=== PATIENT | male | born 1930 | race Caucasian/White ===

== ENCOUNTER 2020-01-26 06:52 | Day surgery (SDC) | payer MEDICARE, OTHER ==
[~2020-01-26] VITALS: Ht 182.9 cm; Wt 69.4 kg
--- NOTE | ~2020-01-26 | OP ---
PATIENT NAME: AGUSTIN IRIZARRY MEDICAL RECORD: [id number] :[birth year] LOCATION:D.OPS ADMISSION DATE: SURGEON: ABDI ADRIAN MD DATE OF OPERATION: 01/26/2020 PREOPERATIVE DIAGNOSIS: Rectal adenocarcinoma. POSTOPERATIVE DIAGNOSIS: Rectal adenocarcinoma. PROCEDURE: Rigid proctoscopy. SURGEON: Abdi Adrian MD REPORT OF PROCEDURE: The patient was placed in lithotomy position. A rigid proctoscope was advanced through the anus and I was able to advance the scope up to 25 cm. As we pulled the scope back, there was some stool that was present. We were able to suction this out and get a good clear view of the patient's rectal tissue. As I pulled back all the way to the anal verge, I never saw any evidence of a rectal mass or ulceration present. The rectal tissue appeared to be normal with no signs of any scarring. I inspected this area a couple of different times, just to make sure I did not miss anything and I never saw any evidence of a tumor. At this point, the scope was removed. COMPLICATIONS: None. CONDITION: Stable. ANESTHESIA: General endotracheal. 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
[~2020-01-26 06:52] MED LIST: INDERAL 40 MG T40 MG PO; LOMOTIL 2.5-0.1 EAC1 PO; ROPINIROLE HCL1 MG PO; TOPROL XL25 MG PO; XALATAN 0.0052.5 ML EACH EYE
[2020-01-26 07:22] LABS: BASOPHILS 1.5 % (0-2); EOSINOPHILS 6.4 % (0-7); HEMATOCRIT 38.3 % (42.0-54.0); HEMOGLOBIN 12.6 g/dL (13.5-17.5); IMMATURE GRANULOCYTES 0.2 % (0-5); LYMPHOCYTES 10.6 % (15-50); MCH 34.4 pg (26.0-34.0); MCHC 32.9 g/dL (31.0-37.0); MCV 104.6 fL (80.0-100.0); MEAN PLATELET VOLUME 9.4 fL (7.4-10.4); MONOCYTES 9.6 % (2-11); NEUTROPHILS 71.7 % (40-80); PLATELET COUNT 112 10x3/uL (130-400); RBC 3.66 10x6/uL (4.20-6.10); RDW 18.7 % (11.5-14.5); WBC 4.1 10x3/uL (4.8-10.8)
[2020-01-26 07:26] LABS: INR 1.12 (0.85-1.17); PROTIME 14.4 SECONDS (11.6-15.0)
[2020-01-26 07:27] LABS: APTT 30.2 SECONDS (22.8-39.4)
[2020-01-26 07:47] LABS: CALC OSMOLALITY 280 mosm/kg (275-300); CALCIUM 9.1 mg/dL (8.5-10.1); CARBON DIOXIDE 29.4 mmol/L (21.0-32.0); CHLORIDE - SERUM 105 mmol/L (98-107); GLUCOSE 112 mg/dL (74-106); SODIUM 140 mmol/L (136-145); UREA NITROGEN 14 mg/dL (7-18); eGFR NON AFRICAN AMERICAN 75 mL/min (90-120)
[2020-01-26 08:31] VITALS: BP 130/87; Ht 182.9 cm; Wt 69.4 kg
--- NOTE | 2020-01-26 11:55 | NUR ---
1130-TOLERATED COFFEE WITH CREAM AND SUGAR AND GLASS OF ICE WATER. VERY PLEASANT. DENIES PAIN.VSS.
--- NOTE | 2020-01-26 12:03 | NUR ---
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 REMOVED IV WITH CATH INTACT,DISPOSED INTO SHARPS,COVERED WITH GUAZE,SECURED WITH MEDIPORE TAPE. VERY PLEASANT WITHOUT COMPLAINTS. VSS.
--- NOTE | 2020-01-26 12:48 | NUR ---
1220-ESCORTED OUT VIA W/C WITH SPOUSE AWAITING TO DRIVE HOME
== END 2020-01-26 12:20 | disposition home or self-care (01) ==
LOC: D.OPS 06:52 → D.PAN 07:30 → D.OPS 07:30 → D.CT 13:00
PROVIDERS: Anesthesiology; ATTEND Surgery
DX: C20 Malignant neoplasm of rectum (principal)